=== PATIENT | female | born 2005 | race African-American/Black ===

== ENCOUNTER 2025-01-16 15:32 | Emergency (ER) | payer OTHER, SELFPAY ==
--- NOTE | ~2025-01-16 | CT_ITS ---
CLINICAL HISTORY: Flank back pain. uTI. pyelonephritits? CT abdomen and pelvis with contrast Comparison: None Findings: The lung bases are clear. 8 mm circumscribed low-density lesion within the right lobe of the liver, most compatible with a benign process. Remaining abdominal organs are unremarkable. There are no calcified gallstones. No bowel obstruction, pneumoperitoneum, or pneumatosis. There is a small amount of pelvic free fluid. Otherwise unremarkable pelvic contents. Normal appendix. No acute fracture. IMPRESSION: There is a small amount of pelvic free fluid. This document has been electronically signed by: Shayy Haddad MD on 01/16/2025 18:23:04
[2025-01-16 15:34] VITALS: BP 122/90; PULSE 96; RESP 20; TEMP 37; O2SAT 98; BMI 20.4
--- NOTE | 2025-01-16 15:34 | ED.GENADULT ---
HPI - General Adult General Chief complaint: Abdominal Pain Stated complaint: kidney issues Time Seen by Provider: 01/16/25 16:44 History of Present Illness ED Provider: Jose Lisa HPI narrative: 19-year-old female presents to the ED back flank pain. Patient presently being treated for UTI finish her Levaquin today. Patient states she was having some dysuria and her UA was positive for UTI so her [facility] face to her Levaquin. Patient denies any nausea or vomiting. Patient denies any abdominal pain. Related Data Previous Rx's ?Medication ?Instructions ?Recorded naproxen 500 mg tablet 500 mg PO BID PRN pain #14 tabs 01/16/25 Allergies Allergy/AdvReac Type Severity Reaction Status Date / Time No Known Allergies Allergy Verified 01/16/25 15:38 Review of Systems Review of Systems: Flank pain. Finish antiobitc today for UTI Yes all other systems are reviewed and are negative [facility] Social History Social History Alcohol intake: current Physical Exam ED Vital Signs: Vital Signs - 24 hr 01/16/25 15:34 01/16/25 17:54 01/16/25 18:43 Temperature 98.6 F 98.8 F Pulse Rate 96 95 87 Respiratory Rate 20 16 14 Blood Pressure 122/90 H 136/86 114/79 Pulse Oximetry 98 98 100 Oxygen Delivery Method Room Air Room Air Room Air 01/16/25 19:03 01/16/25 20:50 Temperature 98.6 F 98.6 F Pulse Rate 80 80 Respiratory Rate 18 18 Blood Pressure 117/72 117/72 Pulse Oximetry 100 100 Oxygen Delivery Method Room Air Room Air BMI result Body Mass Index 20.4 Const General: cooperative, healthy appearing, comfortable, no acute distress, well developed, alert, awake and Physically active Orientation/consciousness: patient oriented x3 HENMT Head: Yes normal to inspection, Yes No palpable skull fracture present, Yes normocephalic and Yes atraumatic Eyes General: appearance normal, both eyes and all related structures Neck Neck: Yes normal visual inspection, Yes full ROM, Yes no lymphadenopathy, Yes no meningeal signs, Yes trachea midline, Yes supple, No anterior neck swelling and No tender Chest Chest palpation & inspection: normal inspection of the chest and normal palpation of entire chest wall Resp Effort & Inspection: normal respiratory effort and able to speak in complete sentences Auscultation: clear to auscultation bilaterally Cardio Jugular venous distension: no JVD Heart sounds: S1 normal heart sound present and S2 normal heart sound present GI Inspection: Yes normal to inspection Palpation (GI): Soft to palpation, not firm, nontender, no guarding and not rigid General: Yes CVA tenderness (left CVA flanks) Back/Spine/Pelvis Back: CVA tenderness (left CVA flanks) Skin General skin exam: no rashes or lesions noted, elasticity normal and turgor normal Neuro General: patient oriented x3, gait normal, tone normal, moves all extremities, Normal light touch and pain sensation, no meningeal signs, no focal motor deficits, CN's II-XI intact bilaterally and normal sensation to monofilament Extrem General: Yes normal to inspection, Yes full ROM and Yes capillary refill normal Psych Appearance: grossly normal, well kempt and not disheveled Course Course Course Narrative: This is a Rapid Medical Examination (RME) performed by Sarah Daley PA-C in triage. Full HPI, ROS, assessment and treatment plan per primary provider in the Main ED. 01/16/25 1535 JO ANN Ball Hx: 19 yo female here for eval of bilateral flank pain x1 week. she was evaluated on Sunday, diagnosed w/ UTI, placed on levofloxacin. she has been taking this as prescribed. today is her last day taking this. no improvement in symptoms. admits to nausea without vomiting. PE/vitals: no cvat. Plan: UA, labs Medications Administered Discontinued Medications Generic Name Dose Route Start Last Admin Trade Name Freq PRN Reason Stop Dose Admin Iohexol 100 ml 01/16/25 17:39 01/16/25 17:39 Iohexol 350 Mg/Ml 100 Ml Infus..Btl IV 01/16/25 17:40 85 ml ONCE ONE Administration Ketorolac Tromethamine 30 mg 01/16/25 20:33 01/16/25 20:39 Ketorolac Tromethamine 30 Mg/Ml Vial IVPUSH 01/16/25 20:34 30 mg ONCE ONE Administration Medical Decision Making Medical Decision Making [facility] Narrative: 19-year-old female presents to ED for lap flank lower back pain. Patient states also some nausea. Patient took last dose for antibiotics today. Was sent for CT scan to check for pyelonephritis. Labs ordered. 8:08pm: CT scan negative for kidney stones or pyelonephritis. UA shows blood and white blood cell count but negative for leuko esterase or nitrates. Negative for any bacteria or squamous cells. CT scan shows small amount of pelvic free fluid. Patient does not have any abdominal pain or pelvic pain. Not suspecting tubo-ovarian abscess, ovarian cyst rupture, ovarian torsion, epidural absces, caudina equina sydndrome or PID. Patient will be discharged with pain medication. Patient explained worrisome signs and informed to return to the ED immediately. Differential Diagnosis Differential Diagnoses: The differential diagnosis associated with the presentation includes (UTI, pyelonephritis, kidney stones, back pain) Admission/Observation Consideration of admission/observation: Escalation of care including admission/observation considered Lab Data 01/16/25 16:20 01/16/25 16:20 Labs: Lab Results 01/16/25 01/16/25 Range/Units 16:20 16:21 WBC 8.0 (4.8-10.8) X10*3/uL RBC 4.94 (4.20-5.50) X10*6/uL Hgb 13.1 (12.0-16.0) g/dl Hct 39.5 (37.0-47.0) % MCV 80.0 (80.0-98.0) fL MCH 26.5 L (27.0-33.0) pg MCHC 33.2 (31.0-35.0) g/dl RDW 13.6 (11.0-16.0) % Plt Count 306 (160-400) X10*3/uL MPV 10.6 (9.4-12.3) fL Immature Gran % (Auto) 0.4 (0.0-0.4) % Neut % (Auto) 69.2 (45-73) % Lymph % (Auto) 23.0 (20-40) % [place] % (Auto) 6.9 (2-11) % Eos % (Auto) 0.1 (0-4) % Baso % (Auto) 0.4 (0-2) % Lymph # (Auto) 1.8 (1.2-4.9) X10*3/uL [place] # (Auto) 0.6 (0.1-1.2) X10*3/uL Eos # (Auto) 0.0 (0.0-0.4) X10*3/uL Baso # (Auto) 0.0 (0.0-0.2) X10*3/uL Abs Immat Gran (auto) 0.03 (0.00-0.03) X10*3/uL Absolute Neuts (auto) 5.5 (2.0-8.3) x10*3/uL Absolute Nucleated RBC 0.000 (0.0-0.012) X10*3/uL Nucleated RBC % (auto) 0.0 (0.0-0.2) /100WBC Sodium 139 (135-145) mmol/L Potassium 3.8 (3.3-5.1) mmol/L Chloride 106 (96-108) mmol/L Carbon Dioxide 24 (22-29) mmol/L Anion Gap 13 (12-20) BUN 12 (9-16) mg/dL Creatinine 0.93 (0.5-1.4) mg/dL Estim Creat Clear Calc 84.0 Estimated GFR > 60 Random Glucose 80 (60-115) mg/dL Calcium 9.5 (8.4-10.2) mg/dL Magnesium 1.9 (1.6-2.6) mg/dL Total Bilirubin 0.6 (0.0-1.0) mg/dL AST 27 (5-31) U/L ALT 11 (0-31) U/L Alkaline Phosphatase 70 (39-117) U/L Total Protein 7.9 (6.5-8.0) g/dL Albumin 4.3 (3.5-5.0) g/dL Urine Color Yellow Urine Appearance Clear Urine pH 5.5 (5.0-9.0) Ur Specific [place] 1.015 (1.005-1.025) Urine Protein Trace (Neg-Trace) mg/dL Urine Glucose (UA) Negative (Negative) mg/dL Urine Ketones 15 (Negative) mg/dL Urine Blood Large (3+) H (Negative) Urine Nitrite Negative (Negative) Ur Leukocyte Esterase Negative (Negative) Urine RBC >20 H (0-2) /HPF Urine WBC 6-10 H (0-5) /HPF Ur Squamous Epith Cells 0-2 (0-2) /HPF Urine Bacteria None Seen (None Seen) Hyaline Casts 0-2 (0-2) /LPF Urine Test NEGATIVE (NEGATIVE) Independent Interpretation I performed an independent interpretation of an: CT Scan Radiology Impression Discussion of test interpretation with radiology: I have reviewed the radiologist's reading. Independent Historian Clinical information obtained from an independent historian. History obtained from or confirmed by: Other (patient) Prescription Management I considered prescription management with: Pain Medication Attestation Attending Attestation: I was personally present and available for consultation in the ED. I have reviewed everything on the chart that is available and agree with the documentation provided by the [facility] including discussion about the assessment, treatment plan and discussion. Based on medical record the care appears appropriate. Shelton Mcintyre MD [facility] Emergency Medicine Discharge Plan Discharge Clinical Impression: Flank pain Patient Disposition: Home, Self-Care Instructions: Flank Pain (ED) Additional Instructions: Your abdominal CT scan negative for signs of pyelonephritis or kidney stones. Cat scan shows small pelvic free fluid but negative for any ovarian cysts on fibroids on ultrasound. UA shows some WBC, but no bacteria, nitrites, or luekoesterase. Return to the ED immediately for any worsening flank pain/back pain, abdominal pain, nausea, vomiting, fever, chills, urinary/bowel incontinence, or any other concerning symptoms. You were given copy of labs for follow up with primary care provider. CT abdomen and pelvis with contrast Comparison: None Findings: The lung bases are clear. 8 mm circumscribed low-density lesion within the right lobe of the liver, most compatible with a benign process. Remaining abdominal organs are unremarkable. There are no calcified gallstones. No bowel obstruction, pneumoperitoneum, or pneumatosis. There is a small amount of pelvic free fluid. Otherwise unremarkable pelvic contents. Normal appendix. No acute fracture. IMPRESSION: There is a small amount of pelvic free fluid. This document has been electronically signed by: Shayy Haddad MD on 01/16/2025 18:23:04 Dictated By: Shayy Haddad MD Signed By: <Electronically signed by Shayy Haddad MD in OV> 01/16/25 1824 Prescriptions: New naproxen 500 mg tablet 500 mg PO BID PRN (Reason: pain) Qty: 14 0RF Interventions: ED Discharge Assessment Last Done: 01/16/25 20:50 Discharge Date/Time: 01/16/25 20:51 Print Language: Cameroonian
[2025-01-16 16:36] LABS: Basophils Percent Auto 0.4 % (0-2); Eosinophils Percent Auto 0.1 % (0-4); Hematocrit 39.5 % (37.0-47.0); Hemoglobin 13.1 g/dl (12.0-16.0); Imm Gran Abs Auto 0.03 X10*3/uL (0.00-0.03); Imm Gran Pct Auto 0.4 % (0.0-0.4); Lymphocytes Absolute Auto 1.8 X10*3/uL (1.2-4.9); MANUAL DIFF FLAG NO; Mean Corpuscular HGB Conc 33.2 g/dl (31.0-35.0); Mean Corpuscular Hemoglobin 26.5 pg (27.0-33.0); Mean Platelet Volume 10.6 fL (9.4-12.3); Monocytes Absolute Auto 0.6 X10*3/uL (0.1-1.2); Monocytes Percent Auto 6.9 % (2-11); Neutrophils Absolute Auto 5.5 x10*3/uL (2.0-8.3); Neutrophils Percent Auto 69.2 % (45-73); Platelet Count 306 X10*3/uL (160-400); Red Blood Count 4.94 X10*6/uL (4.20-5.50); Red Cell Distribution Width 13.6 % (11.0-16.0)
[2025-01-16 16:39] LABS: Appearance Urine Clear; Color Urine Yellow; Glucose Urine UA Negative (Negative); Leukocyte Esterase Urine Negative (Negative); Nitrite Urine Negative (Negative); PH 5.5 (5.0-9.0); Specific Gravity - Urine 1.015 (1.005-1.025); UMIC TRIGGER UACC YES; Urine Blood Large (3+) (Negative); Urine Ketones 15 mg/dL (Negative); Urine Protein Trace mg/dL (Neg-Trace)
[2025-01-16 16:41] LABS: Bacteria Urine None Seen (None Seen); Hyaline Casts Urine 0-2 /LPF (0-2); RBC Urine >20 /HPF (0-2); Squamous Epithelial Cell Urine 0-2 /HPF (0-2); UACC Culture Trigger YES; UPreg QC Valid YES; Urine Pregnancy NEGATIVE (NEGATIVE)
[2025-01-16 17:01] LABS: Alanine Aminotransferase 11 U/L (0-31); Albumin Level 4.3 g/dL (3.5-5.0); Anion Gap 13 (12-20); Aspartate Amino Transferase 27 U/L (5-31); Bilirubin Total 0.6 mg/dL (0.0-1.0); Blood Urea Nitrogen 12 mg/dL (9-16); Calcium 9.5 mg/dL (8.4-10.2); Carbon Dioxide 24 mmol/L (22-29); Chloride 106 mmol/L (96-108); Estimated Glomerular Filt Rate > 60; Glucose Random 80 mg/dL (60-115); Magnesium 1.9 mg/dL (1.6-2.6); Potassium 3.8 mmol/L (3.3-5.1); Sodium 139 mmol/L (135-145); Total Protein 7.9 g/dL (6.5-8.0)
[2025-01-16] MEDS: iohexoL 350 MG/ML 100 ML INFUS..BTL IV (17:39)
[2025-01-16 17:54] VITALS: BP 136/86; PULSE 95; RESP 16; TEMP 37.1; O2SAT 98
[2025-01-16 18:40] LABS: Alkaline Phosphatase 70 U/L (39-117)
[2025-01-16 18:43] VITALS: BP 114/79; PULSE 87; RESP 14; O2SAT 100
[2025-01-16 19:03] VITALS: BP 117/72; PULSE 80; RESP 18; TEMP 37; O2SAT 100
[2025-01-16] MEDS: Ketorolac Tromethamine 30 MG/ML VIAL IVPUSH (20:39)
--- NOTE | 2025-01-16 20:41 | PC.NURSE ---
pt medicated according to nov for reported 05/10 pain
--- NOTE | 2025-01-16 20:49 | PC.NURSE ---
pt ambulatory at discharge iv removed at discharge pt verbalized understanding of discharge plan
[2025-01-16 20:50] VITALS: BP 117/72; PULSE 80; RESP 18; TEMP 37; O2SAT 100
== END 2025-01-16 20:51 | disposition home or self-care (01) ==
PROVIDERS: Physician Assistant Medical; Emergency Provider Emergency Medicine
DX: R10.9 Unspecified abdominal pain (principal); N39.0 Urinary tract infection, site not specified; R30.0 Dysuria; M54.50 Low back pain, unspecified; Z79.899 Other long term (current) drug therapy
CPT/HCPCS: 36415; 74177; 80053; 81001; 81025; 83735; 85025; 87086; 96374; 99284; J1885; Q9967

== ENCOUNTER → 2025-01-16 17:19 | Outpatient (BNV) | payer OTHER, SELFPAY | PROVIDERS: Emergency Provider Emergency Medicine; Visit Provider Radiology Diagnostic Radiology | DX: N39.0 Urinary tract infection, site not specified (principal); R10.9 Unspecified abdominal pain | CPT/HCPCS: 74177 ==